=== PATIENT | male | born 1955 | race Caucasian/White ===

== ENCOUNTER → 2020-08-19 | Outpatient (CLI) | payer MEDICARE, OTHER ==
[~2020-08-19] MED LIST: ADALAT CC90 MG PO; CELEXA40 MG PO; FLOMAX0.4 MG PO; GLUCOPHAGE500 MG PO; HYDROCHLOROTHIA25 MG PO; INDOCIN 50 MG C50 MG PO; KLONOPIN0.5 MG PO; LIPITOR TAB 2020 MG PO; NORCO 10-325 T1 EACH PO; PERCOCET 10-321 EACH PO; PHENERGAN 25 MG25 M1 PO; PROTONIX40 MG PO; TOPROL XL25 MG PO; ZOLPIDEM TARTRA10 MG PO
== END ==
LOC: CT 08:19
DX: C18.9 Malignant neoplasm of colon, unspecified (principal); K76.89 Other specified diseases of liver; Z98.890 Other specified postprocedural states
CPT/HCPCS: Q9967